=== PATIENT | female | born 1970 | race Caucasian/White ===

== ENCOUNTER → 2021-08-12 | Outpatient (CLI) | payer OTHER ==
--- NOTE | 2021-08-12 13:18 | RAD ---
EXAM: Right breast ultrasound. HISTORY: Nodule on screening mammography. Additional imaging is requested. COMPARISON: 07/30/2021. FINDINGS: Sonographic evaluation of the right upper outer breast was performed at sites of mammograph ic concern. At the 10:00 position 7 cm from the nipple, a nearly anechoic oval nodule is consistent w ith a cyst. A few internal echoes may reflect debris or other mild complication. There is no internal perfusion. Images of the right axilla reveal no suspicious lymph nodes. There is no suspicious sonog raphic finding. IMPRESSION: 1. BI-RADS Category 2: Benign findings. 2. Recommend bilateral screening mammography in one year. Electronically signed by: Zora De La Paz MD (08/12/2021 1:15 PM) [id number]
== END ==
LOC: US 13:00
PROVIDERS: ATTEND Physician Assistant Medical
DX: N63.11 Unspecified lump in the right breast, upper outer quadrant (principal)
CPT/HCPCS: 76641